=== PATIENT | male | born 1985 | race Caucasian/White ===

== ENCOUNTER → 2018-06-26 | Outpatient (CLI) | payer OTHER | LOC: COL.RAD 13:49 | DX: A15.0 Tuberculosis of lung (principal); J18.1 Lobar pneumonia, unspecified organism; R91.8 Other nonspecific abnormal finding of lung field; R04.2 Hemoptysis | CPT/HCPCS: Q9967 ==

== ENCOUNTER → 2018-07-01 | Outpatient (CLI) | payer OTHER | LOC: COL.LAB 07:53 | DX: R04.2 Hemoptysis (principal) ==

== ENCOUNTER → 2018-07-18 | Outpatient (CLI) | payer OTHER | LOC: COL.LAB → ZCOL.LAB 16:20 | DX: R04.2 Hemoptysis (principal) ==

== ENCOUNTER 2022-03-15 10:22 | Emergency (ER) | payer BC ==
[~2022-03-15] VITALS: Ht 172.7 cm; Wt 69.1 kg
[2022-03-15 11:10] VITALS: TEMP 98.9
[2022-03-15 12:59] LABS: STREP SCREEN POSITIVE
[2022-03-15] MEDS ORDERED: PEN-VEE K500 MG PO (13:30)
[2022-03-15 13:39] VITALS: BP 132/87; PULSE 111
== END 2022-03-15 13:39 | disposition home or self-care (01) ==
LOC: COL.ER 10:22
PROVIDERS: Nurse Practitioner
DX: J02.0 Streptococcal pharyngitis (principal); Z86.16 Personal history of COVID-19